=== PATIENT | female | born 1955 | race Caucasian/White ===

== ENCOUNTER 2020-07-26 15:01 | Inpatient (IN) | payer MEDICARE, MEDICAID ==
[~2020-07-26] VITALS: Ht 162.6 cm; Wt 78.3 kg
[2020-07-26 15:59] LABS: Albumin 3.1 g/dL (3.4-5.0); Anion Gap 10 (5-15); Blood Urea Nitrogen 17 mg/dL (7-18); Calcium 8.8 mg/dL (8.5-10.1); Carbon Dioxide 23 mmol/L (21-32); Chloride 110 mmol/L (98-107); Glucose 354 mg/dL (74-106); Magnesium 1.8 mg/dL (1.6-2.6); Potassium 3.6 mmol/L (3.5-5.1); Sodium 143 mmol/L (136-145)
[2020-07-26 16:03] LABS: Alanine Aminotransferase 16 U/L (13-56); Alkaline Phosphatase 101 U/L (45-117); Aspartate Aminotransferase 13 U/L (15-37); BUN/Creatinine Ratio 16.7; Bilirubin, Total 0.5 mg/dL (0.2-1.0); GFR African American 70 mL/min; GFR Non-African American 58 mL/min; Total Protein 6.9 g/dL (6.4-8.2)
[2020-07-26 16:09] LABS: Basophils # (auto) 0 10 ^3/uL (0-0.2); Basophils % (auto) 0.5 % (0.0-2.0); Eosinophils # (auto) 0.1 10 ^3/uL (0-0.8); Eosinophils % (auto) 1.8 % (0.0-7.0); Hematocrit 41.5 % (36.0-46.0); Hemoglobin 13.6 g/dL (12.2-16.2); Lymphocytes # (auto) 2.1 10 ^3/uL (0.4-5.4); Lymphocytes % (auto) 28.5 % (10.0-50.0); Mean Corpuscular Hemoglobin 31.8 pg (28.0-32.0); Mean Corpuscular Hgb Conc. 32.8 g/dL (32.0-36.0); Monocytes # (auto) 0.6 10 ^3/uL (0-1.3); Monocytes % (auto) 8.7 % (0.0-12.0); Neutrophils # (auto) 4.5 10 ^3/uL (1.6-8.6); Neutrophils % (auto) 60.5 % (37.0-80.0); Nucleated Red Blood Cells % 0.2 %; Platelet Count (auto) 178 10^3/uL (140-450); Red Blood Cells 4.28 10^6/uL (4.0-5.20); Red Cell Distribution Width 14.6 % (11.8-14.3); White Blood Cell 7.4 10^3/uL (4.4-10.8)
[2020-07-26 16:30] LABS: Urine Bacteria MANY /hpf (None Seen); Urine Blood Negative /uL (Negative); Urine Mucus FEW (None Seen); Urine Specific Gravity 1.024 (1.001-1.035); Urine WBC 35 /hpf (0 - 5)
[2020-07-26 16:46] LABS: Amphetamine Screen, Urine NEGATIVE (NEGATIVE); Barbiturate Scree,Urine NEGATIVE (NEGATIVE); Benzodiazephine Screen, Urine NEGATIVE (NEGATIVE); Cannabinoid Screen, Urine NEGATIVE (NEGATIVE); Cocaine Screen, Urine NEGATIVE (NEGATIVE); Opiate Scree,Urine NEGATIVE (NEGATIVE); Phencyclidine Screen, Urine NEGATIVE (NEGATIVE)
[2020-07-26] MEDS ORDERED: MORPHINE SULF INJ 2 MG/ML SYRINGE 1ML IV PRN ×3 (17:45→18:15)
[2020-07-26] MEDS ORDERED: NITROGLYCERIN 0.4 MG SL TAB SL PRN ×2 (17:45→18:15)
[2020-07-26] MEDS ORDERED: LACTATED RINGER'S 1,000 ML IV ONE (17:45)
[2020-07-26] MEDS ORDERED: LORazepam 0.5 MG TAB PO PRN (18:15)
[2020-07-26] MEDS ORDERED: CEFTRIAXONE SODIUM 2 GM in D5W 5% 50 ML IV ONE (18:15)
[2020-07-26] MEDS ORDERED: HYDROcodone-ACET 5/325MG TAB PO PRN (18:15)
[2020-07-26] MEDS ORDERED: ALUM & MAG HYDROX-SIMETH LIQ(MAALOX) 30 ML PO PRN (18:15)
[2020-07-26] MEDS ORDERED: DOCUSATE SOD 100 MG CAP PO PRN (18:15)
[2020-07-26] MEDS ORDERED: DEXTROSE (50%) 50ML SYRG IV PRN (18:15)
[2020-07-26] MEDS ORDERED: ONDANSETRON HCL 4 MG/2 ML VIAL IV PRN (18:15)
[2020-07-26] MEDS ORDERED: CARB25TA75 PO (19:23)
[2020-07-26] MEDS ORDERED: LIRA18IN2 SUBCUT (19:23)
[2020-07-26] MEDS ORDERED: ASCO500T11 PO (19:23)
[2020-07-26] MEDS ORDERED: GLIP10TA9 PO (19:23)
[2020-07-26] MEDS ORDERED: OMEG306C PO (19:23)
[2020-07-26] MEDS ORDERED: CLOB0.055 TOP (19:23)
[2020-07-26] MEDS ORDERED: METF-929 PO (19:23)
[2020-07-26] MEDS ORDERED: PROP40TA59 PO (19:23)
[2020-07-26] MEDS ORDERED: CHOL20002 PO (19:23)
[2020-07-26] MEDS ORDERED: ATOR1TAB PO (19:23)
[2020-07-26] MEDS ORDERED: LISI-646 PO (19:23)
[2020-07-26] MEDS ORDERED: MULT-1018 PO (19:23)
[2020-07-26] MEDS ORDERED: DIVA500T12 PO (19:23)
[2020-07-26] MEDS ORDERED: QUET50TA25 PO (19:23)
[2020-07-26] MEDS ORDERED: GABA300C10 PO (19:23)
[2020-07-26] MEDS ORDERED: RALO60TA13 PO (19:37)
[2020-07-26 19:49] LABS: Cholesterol 174 mg/dL (< 200); HDL Cholesterol 67 mg/dL (40-59); LDL Cholesterol 92 mg/dL (< 100); Triglycerides 107 mg/dL (< 150)
--- NOTE | 2020-07-26 20:04 | NUR ---
Telemetry admit from [facility] admitted to Telemetry unit after SBAR received. Patient oriented to JOSEPH JONES RN primary RN, unit, room, bed, and unit policies regarding patient care and visiting hours. Patient now on continuous telemetry monitoring, tele box # [id number] and telemetry reading on arrival to unit is sinus rhythm. Patient weighed by bed scale and encouraged to call if they need something. All questions and concerns addressed, patient verbalized understanding. Addendum: 07/27/20 at 0154 by JOSEPH JONES RN RN Patient is deaf and mute since . Able to communicate through writing or sign language.
[2020-07-26 22:00] VITALS: BP 162/93
[2020-07-26] MEDS: ATORVASTATIN 20 MG TAB PO SCH (22:36)
[2020-07-26] MEDS: GABAPENTIN 100 MG CAP PO SCH (22:36)
[2020-07-26] MEDS: FAMOTIDINE 20 MG TAB PO SCH (22:37)
[2020-07-26] MEDS: CARBIDOPA W LEVODOPA 25/100mg TABLET PO SCH (22:37)
[2020-07-26] MEDS: ACCU-CHEK COMFORT CURVE STRIP VI SCH (22:37)
[2020-07-26] MEDS: QUEtiapine FUMARATE 25 MG TAB PO SCH (22:37)
[2020-07-26] MEDS: InsuLIN REG 1unit/0.01ml Soln (100units/ml) SC SCH (22:42)
[2020-07-27 05:00] VITALS: BP 152/79
[2020-07-27] MEDS: SOD CHL 0.45% 1,000 ML IV SCH ×2 (06:31→10:55)
[2020-07-27] MEDS: GABAPENTIN 100 MG CAP PO SCH ×3 (06:31→22:32)
[2020-07-27] MEDS: CARBIDOPA W LEVODOPA 25/100mg TABLET PO SCH ×4 (06:31→22:31)
[2020-07-27] MEDS: ACCU-CHEK COMFORT CURVE STRIP VI SCH ×4 (06:31→22:32)
[2020-07-27] MEDS: InsuLIN REG 1unit/0.01ml Soln (100units/ml) SC SCH ×4 (06:35→22:40)
--- NOTE | 2020-07-27 06:54 | NUR ---
IV removal IV to right forearm is leaking and painful. DC'd with clean sterile technique, catheter fully intact. Pressure dressing applied to site. Patient tolerated well.
--- NOTE | 2020-07-27 06:54 | NUR ---
IV insertion IV access obtained, via clean sterile technique by inserting 22 gauge catheter at left forearm after 1 attempt. IV secured properly. No trauma to site. Patient tolerated well.
--- NOTE | 2020-07-27 07:30 | NUR ---
Closing Shift Note Assuming care of patient at this time. Patient is awake and alert. Patient denies pain. Patient shows no signs or symptoms of distress or shortness of breath. Bed is locked and lowered with side rails up x2. Instructed patient on the plan of care for today and to call for assistance as needed. Call light within reach. Will continue to round hourly and as needed. Addendum: 07/27/20 at 1955 by ESMER DUNHAM RN RN Opening Shift Note
[2020-07-27 10:00] VITALS: BP 141/75
[2020-07-27] MEDS: FAMOTIDINE 20 MG TAB PO SCH ×2 (11:25→22:32)
[2020-07-27] MEDS: ASPirin 81 mg TAB PO SCH (11:25)
[2020-07-27] MEDS: METOPROLOL SUCCINATE XL 50 MG TAB PO SCH (11:26)
[2020-07-27] MEDS: RALOXIFENE HCL 60 MG TAB PO SCH (11:27)
[2020-07-27] MEDS: ENOXAPARIN SOD 40 MG/0.4 ML SYRINGE SC SCH (11:27)
[2020-07-27] MEDS: CEFTRIAXONE SODIUM 2 GM in D5W 5% 50 ML IV SCH (11:28)
[2020-07-27] MEDS: LISINOPRIL 10 MG TAB PO SCH (11:28)
--- NOTE | 2020-07-27 12:10 | NUR ---
Dr. Aguilar at bedside Dr. Aguilar at bedside discussing plan of care with patient and this RN. This RN wrote a note to update patient and will call and notify daughter.
--- NOTE | 2020-07-27 12:20 | NUR ---
Spoke with Daughter Spoke with daughter regarding doctor visit. All questions and concerns addressed.
[2020-07-27] MEDS ORDERED: cloNIDine HCL 0.1 MG TAB PO PRN (12:30)
[2020-07-27 13:00] VITALS: BP 111/66
[2020-07-27 17:00] VITALS: BP 134/87
--- NOTE | 2020-07-27 19:23 | NUR ---
Closing Shift Note Patient resting in bed. No distress noted. Report given. Will endorse care to the night shift manager RN.
--- NOTE | 2020-07-27 20:00 | NUR ---
OPENING SHIFT NOTE Assumed care of patient who is A&O x4, non-verbal. Patient is deaf and mute since . Able to communicate through Vietnamese sign language and writing notes. Patient is currently on RA with no s/s of distress. Denies pain at this time. PIV in left forearm is intact and patent. Currently infusing IVF as ordered. POC discussed and patient acknowledges understanding by nodding head. Bed is in low locked position with side rails up x2. Call light is within reach and patient encouraged to call for assistance when needed.
--- NOTE | 2020-07-27 20:59 | NUR ---
Dr. Morel at bedside.
[2020-07-27 22:00] VITALS: BP 156/93
[2020-07-27] MEDS: QUEtiapine FUMARATE 25 MG TAB PO SCH (22:32)
[2020-07-27] MEDS: ATORVASTATIN 20 MG TAB PO SCH (22:32)
[2020-07-28] MEDS: SOD CHL 0.45% 1,000 ML IV SCH ×2 (04:16→20:15)
[2020-07-28 05:00] VITALS: BP 138/76
[2020-07-28] MEDS: ACCU-CHEK COMFORT CURVE STRIP VI SCH ×4 (06:00→22:21)
[2020-07-28] MEDS: CARBIDOPA W LEVODOPA 25/100mg TABLET PO SCH ×3 (06:00→22:20)
[2020-07-28] MEDS: GABAPENTIN 100 MG CAP PO SCH ×3 (06:00→22:20)
[2020-07-28] MEDS: InsuLIN REG 1unit/0.01ml Soln (100units/ml) SC SCH ×4 (06:04→22:00)
[2020-07-28 06:42] LABS: Basophils # (auto) 0 10 ^3/uL (0-0.2); Basophils % (auto) 0.4 % (0.0-2.0); Eosinophils # (auto) 0.3 10 ^3/uL (0-0.8); Hemoglobin 12.9 g/dL (12.2-16.2); Lymphocytes # (auto) 3.5 10 ^3/uL (0.4-5.4); Lymphocytes % (auto) 46.5 % (10.0-50.0); Mean Corpuscular Hemoglobin 31.6 pg (28.0-32.0); Mean Corpuscular Hgb Conc. 33.1 g/dL (32.0-36.0); Mean Corpuscular Volume 95.5 fL (80.0-100.0); Monocytes # (auto) 0.6 10 ^3/uL (0-1.3); Monocytes % (auto) 8.4 % (0.0-12.0); Neutrophils # (auto) 3.1 10 ^3/uL (1.6-8.6); Neutrophils % (auto) 40.7 % (37.0-80.0); Nucleated Red Blood Cells % 0.1 %; Platelet Count (auto) 163 10^3/uL (140-450); Red Blood Cells 4.08 10^6/uL (4.0-5.20); Red Cell Distribution Width 14.6 % (11.8-14.3); White Blood Cell 7.6 10^3/uL (4.4-10.8)
[2020-07-28 06:59] LABS: Chloride 108 mmol/L (98-107); Potassium 3.3 mmol/L (3.5-5.1); Sodium 142 mmol/L (136-145)
[2020-07-28 07:00] LABS: INR 1.02 (0.9-1.15)
[2020-07-28 07:20] LABS: Anion Gap 7 (5-15); BUN/Creatinine Ratio 23.1; Blood Urea Nitrogen 12 mg/dL (7-18); Calcium 8.3 mg/dL (8.5-10.1); Carbon Dioxide 27 mmol/L (21-32); GFR African American 152 mL/min; GFR Non-African American 125 mL/min; Glucose 170 mg/dL (74-106)
[2020-07-28 08:47] VITALS: BP 156/84
[2020-07-28] MEDS: CEFTRIAXONE SODIUM 2 GM in D5W 5% 50 ML IV SCH (09:58)
[2020-07-28] MEDS: METOPROLOL SUCCINATE XL 50 MG TAB PO SCH (09:59)
[2020-07-28] MEDS: FAMOTIDINE 20 MG TAB PO SCH ×2 (09:59→22:20)
[2020-07-28] MEDS: ENOXAPARIN SOD 40 MG/0.4 ML SYRINGE SC SCH (09:59)
[2020-07-28] MEDS: ASPirin 81 mg TAB PO SCH (09:59)
[2020-07-28] MEDS: LISINOPRIL 10 MG TAB PO SCH (10:00)
[2020-07-28] MEDS: RALOXIFENE HCL 60 MG TAB PO SCH (10:02)
[2020-07-28] MEDS: ACETAMINOPHEN 325 MG TAB PO PRN (10:15)
[2020-07-28 13:06] VITALS: BP 128/71
[2020-07-28 16:32] VITALS: BP 128/67
[2020-07-28] MEDS ORDERED: LORazepam 2MG/ML-1ML VIAL IV PRN (21:00)
[2020-07-28 22:00] VITALS: BP 138/83
[2020-07-28] MEDS: ATORVASTATIN 20 MG TAB PO SCH (22:20)
[2020-07-28] MEDS: QUEtiapine FUMARATE 25 MG TAB PO SCH (22:20)
[2020-07-29 05:00] VITALS: BP 143/77
[2020-07-29] MEDS: InsuLIN REG 1unit/0.01ml Soln (100units/ml) SC SCH ×4 (05:33→22:04)
[2020-07-29] MEDS: CARBIDOPA W LEVODOPA 25/100mg TABLET PO SCH ×3 (06:00→22:06)
[2020-07-29] MEDS: GABAPENTIN 100 MG CAP PO SCH ×3 (06:00→22:06)
[2020-07-29] MEDS: ACCU-CHEK COMFORT CURVE STRIP VI SCH ×4 (07:01→21:51)
--- NOTE | 2020-07-29 07:40 | NUR ---
opening note assumed care of patient from NOC RN. Patient is AOX3 no s/s of distress noted. Bed is in lowest locked position, side rails up x2 and call light within reach. Patient communicates with written word, updated patient on plan of care and patient expressed understanding. Reinforcement is needed. Will continue to monitor q1hr and PRN.
[2020-07-29 09:00] VITALS: BP 115/90
[2020-07-29] MEDS: FAMOTIDINE 20 MG TAB PO SCH ×2 (10:24→22:06)
[2020-07-29] MEDS: LISINOPRIL 10 MG TAB PO SCH (10:25)
[2020-07-29] MEDS: ASPirin 81 mg TAB PO SCH (10:26)
[2020-07-29] MEDS: ACETAMINOPHEN 325 MG TAB PO PRN (10:27)
[2020-07-29] MEDS: RALOXIFENE HCL 60 MG TAB PO SCH (10:27)
[2020-07-29] MEDS: ENOXAPARIN SOD 40 MG/0.4 ML SYRINGE SC SCH (10:28)
[2020-07-29] MEDS: cefTRIAXone 1GM/50ML D5W 50 ML IV SCH (10:28)
[2020-07-29] MEDS: METOPROLOL SUCCINATE XL 50 MG TAB PO SCH (10:30)
--- NOTE | 2020-07-29 11:29 | NUR ---
Physician rounding Dr. Christiansen at bedside. updated patient on plan of care. No new orders received.
--- NOTE | 2020-07-29 12:27 | NUR ---
Nutrition Assessment Notes please see attached link for complete assessment. Est energy needs BW [id number] kcal (20-23 kcal/kg BW), Est protein needs: 77-84g (1-1.1g/kg BW). Will reassess prn. Addendum: 07/29/20 at [address] Amended: Links added.
[2020-07-29] MEDS: SOD CHL 0.45% 1,000 ML IV SCH (12:55)
[2020-07-29 13:00] VITALS: BP 101/58
--- NOTE | 2020-07-29 14:59 | NUR ---
Spoke with family Spoke with patients daughter Rivka, updated her on patient status and plan of care. Rivka verbalized understanding.
[2020-07-29 16:55] VITALS: BP 128/72
--- NOTE | 2020-07-29 19:04 | NUR ---
end of shift note endorsed care to NOC RN. No s/s of distress noted.
--- NOTE | 2020-07-29 19:50 | NUR ---
Opening Shift Note Assumed care of patient, awake and alert. No S/S of distress/SOB or pain. Instructed on POC and to call for assist PRN. Bed in lowest locked position, call light within reach, side rails upx2, fall precautions in place. Will continue to monitor for changes Q1hr and PRN.
[2020-07-29 22:00] VITALS: BP 126/75
[2020-07-29] MEDS: QUEtiapine FUMARATE 25 MG TAB PO SCH (22:06)
[2020-07-29] MEDS: ATORVASTATIN 20 MG TAB PO SCH (22:06)
[2020-07-30 05:00] VITALS: BP 127/71
[2020-07-30] MEDS: SOD CHL 0.45% 1,000 ML IV SCH (05:35)
[2020-07-30] MEDS: InsuLIN REG 1unit/0.01ml Soln (100units/ml) SC SCH ×2 (06:20→11:58)
[2020-07-30] MEDS: ACCU-CHEK COMFORT CURVE STRIP VI SCH ×2 (06:22→11:55)
[2020-07-30] MEDS: GABAPENTIN 100 MG CAP PO SCH ×2 (06:22→14:54)
[2020-07-30] MEDS: CARBIDOPA W LEVODOPA 25/100mg TABLET PO SCH (06:22)
--- NOTE | 2020-07-30 07:30 | NUR ---
Assumed care Patient in bed AOx4. Patient noted to be deaf and mute but is able to communicate by writing. Pen, paper, and clipboard for written communication within reach. Patient denies pain at this time. Patient updated on POC and instructed on how to use call light. Patient returned demonstration at this time. Bed in lowest, locked position, call light within reach, side rails x2 up. Will continue care.
[2020-07-30 08:55] VITALS: BP 148/88
[2020-07-30] MEDS: cefTRIAXone 1GM/50ML D5W 50 ML IV SCH (10:17)
[2020-07-30] MEDS: ENOXAPARIN SOD 40 MG/0.4 ML SYRINGE SC SCH (10:17)
[2020-07-30] MEDS: FAMOTIDINE 20 MG TAB PO SCH (10:17)
[2020-07-30] MEDS: ASPirin 81 mg TAB PO SCH (10:17)
[2020-07-30] MEDS: LISINOPRIL 10 MG TAB PO SCH (10:18)
[2020-07-30] MEDS: METOPROLOL SUCCINATE XL 50 MG TAB PO SCH (10:18)
[2020-07-30] MEDS: RALOXIFENE HCL 60 MG TAB PO SCH (10:20)
--- NOTE | 2020-07-30 11:25 | NUR ---
Spoke with family Received call from patient's daughter Rivka requesting update on patient's discharge plans. Password in the account verified at this time and daughter updated on POC. Daughter made aware we are still waiting on Patient's primary MD in hospital to make rounds. Per this RN daughter will be notified as soon as new updates emerge in the POC of patient.
[2020-07-30 13:00] VITALS: BP 135/74
[2020-07-30 13:46] VITALS: BP 148/88
--- NOTE | 2020-07-30 16:10 | NUR ---
DISCHARGE Discharge instructions given as ordered to patient's daughter Rivka over the phone and in person upon pickup of patient. Encouraged to follow up with PMD as instructed and with Neurologist following her case or Dr. Morel who saw the patient during hospital admission. All questions and concerns addressed. Daughter verbalized understanding. IV removed with catheter intact, pressure dressing applied. Telemetry unit returned to ICU. Patient taken to vehicle via wheelchair with all personal belongings, accompanied by this RN.
== END 2020-07-30 16:10 | disposition home or self-care (01) | DRG 871 ==
LOC: ER 15:01 → EDBD 15:01 → TELE 15:02 → TELE-WESTW 20:02
PROVIDERS: ADMIT Hospitalist; ATTEND Family Medicine
DX: A41.9 Sepsis, unspecified organism (principal); G93.41 Metabolic encephalopathy; N39.0 Urinary tract infection, site not specified; G25.9 Extrapyramidal and movement disorder, unspecified; E44.0 Moderate protein-calorie malnutrition; E78.5 Hyperlipidemia, unspecified; M81.0 Age-related osteoporosis without current pathological fracture; K21.9 Gastro-esophageal reflux disease without esophagitis; I10 Essential (primary) hypertension; E66.01 Morbid (severe) obesity due to excess calories; E11.65 Type 2 diabetes mellitus with hyperglycemia; H91.3 Deaf nonspeaking, not elsewhere classified; F31.9 Bipolar disorder, unspecified; E11.21 Type 2 diabetes mellitus with diabetic nephropathy; G20 Parkinson's disease; F17.200 Nicotine dependence, unspecified, uncomplicated; I49.9 Cardiac arrhythmia, unspecified; E11.40 Type 2 diabetes mellitus with diabetic neuropathy, unspecified; W18.39XA Other fall on same level, initial encounter; S09.90XA Unspecified injury of head, initial encounter; Z82.49 Family history of ischemic heart disease and other diseases of the circulatory system; Z68.29 Body mass index [BMI] 29.0-29.9, adult; Z59.0 Homelessness; Z83.3 Family history of diabetes mellitus; Z90.710 Acquired absence of both cervix and uterus; Y93.89 Activity, other specified; Y92.89 Other specified places as the place of occurrence of the external cause; Y99.8 Other external cause status
CPT/HCPCS: 36415; 70450; 70551; 71045; 73564; 76775; 80048; 80053; 80061; 80307; 80320; 81001; 82962; 83036; 83735; 84443; 84484; 85025; 85610; 87040; 87086; 93306; 95819; 96365; G0378; J0696; J1815; J7060